=== PATIENT | female | born 1960 | race Caucasian/White ===

== ENCOUNTER 2020-01-12 11:47 | Emergency (ER) | payer MEDICARE, MEDICAID ==
[2020-01-12] MEDS ORDERED: DEXAMETHASONE SOD PHOS INJ 10 MG/1 ML VIAL IV ONE (12:02)
[2020-01-12] MEDS ORDERED: FAMOTIDINE INJ/PF 20 MG/2 ML SDV IV ONE (12:02)
[2020-01-12] MEDS ORDERED: DIPHENHYDRAMINE HCL 50 MG/ML VIAL IV ONE (12:02)
--- NOTE | 2020-01-12 12:02 | ER Document Report ---
ED Medical Screen (RME) - General Chief Complaint: Swelling of Tongue Stated Complaint: TONGUE SWELLING Time Seen by Provider: 01/12/20 11:59 Notes: 59-year-old female presents with tongue swelling that started upon awakening. Patient is on lisinopril for years. Patient denies any other lip or throat swelling. Patient denies any shortness of breath. Tongue is noticeably swollen. No stridor. Patient is handling secretions at this time. I have greeted and performed a rapid initial assessment of this patient. A comprehensive ED assessment and evaluation of the patient, analysis of test results and completion of the medical decision making process with be conducted by additional ED providers. TRAVEL OUTSIDE OF THE [place] IN LAST 30 DAYS: No - Related Data Allergies/Adverse Reactions: acetaminophen [From Percocet] Allergy (Intermediate, Verified 01/12/20 11:57) ringing in ears codeine [Codeine] Allergy (Intermediate, Verified 01/12/20 11:57) crazy oxycodone HCl [From Percocet] Allergy (Intermediate, Verified 01/12/20 11:57) ringing in ears omeprazole [From Prilosec] Adverse Reaction (Intermediate, Verified 01/12/20 11:57) Nausea omeprazole magnesium [From Prilosec] Adverse Reaction (Intermediate, Verified 01/12/20 11:57) Nausea Past Medical History - Past Medical History Cardiac Medical History: Reports: Hx Hypercholesterolemia, Hx Hypertension Pulmonary Medical History: Reports: Hx Asthma, Hx Bronchitis, Hx Pneumonia Denies: Hx Tuberculosis Neurological Medical History: Reports: Hx Migraine Endocrine Medical History: Reports: Hx Diabetes Mellitus Type 2 - prediabetic Musculoskeltal Medical History: Reports Hx Musculoskeletal Deformity, Reports Hx Musculoskeletal Trauma Psychiatric Medical History: Reports: Hx Depression Traumatic Medical History: Reports: Hx Fractures Past Surgical History: Reports: Hx Section - x1, Hx Cholecystectomy, Hx Dilation and Curettage, Hx Gynecologic Surgery - D&C - Immunizations Immunizations up to date: Yes Hx Diphtheria, Pertussis, Tetanus Vaccination: Yes Physical Exam - Vital signs Vitals: Temp Pulse Resp BP Pulse Ox 98.7 F 102 H 18 153/73 H 97 01/12/20 11:54 01/12/20 11:54 01/12/20 11:54 01/12/20 11:54 01/12/20 11:54 Course - Vital Signs Vital signs: Temp Pulse Resp BP Pulse Ox 98.7 F 102 H 18 153/73 H 97 01/12/20 11:54 01/12/20 11:54 01/12/20 11:54 01/12/20 11:54 01/12/20 11:54
[2020-01-12] MEDS ORDERED: EPINEPHRINE INJ/PF 1 MG/1 ML AMPULE IM ONE (12:14)
[2020-01-12] MEDS ORDERED: C1 ESTERASE INHIBITOR IV PRN (13:51)
[2020-01-12] MEDS ORDERED: CONTAINER EMPTY IV PRN (13:51)
--- NOTE | 2020-01-12 15:08 | ER Document Report ---
ED General - General Chief Complaint: Swelling of Tongue Stated Complaint: TONGUE SWELLING Time Seen by Provider: 01/12/20 11:59 Mode of Arrival: Ambulatory Information source: Patient TRAVEL OUTSIDE OF THE [place] IN LAST 30 DAYS: No - HPI Notes: Patient presents with tongue swelling and trouble swallowing. She states she has never had this before. She states that started about early afternoon. It is been getting progressively worse. She has not been short of breath but has had some trouble swallowing her own saliva. The patient symptoms have been constant. They have been severe. It is a fullness sensation. Patient does take an EDER inhibitor. It seems to be worse with swallowing and better when she does not swallow. - Related Data Allergies/Adverse Reactions: acetaminophen [From Percocet] Allergy (Intermediate, Verified 01/12/20 11:57) ringing in ears codeine [Codeine] Allergy (Intermediate, Verified 01/12/20 11:57) crazy oxycodone HCl [From Percocet] Allergy (Intermediate, Verified 01/12/20 11:57) ringing in ears omeprazole [From Prilosec] Adverse Reaction (Intermediate, Verified 01/12/20 11:57) Nausea omeprazole magnesium [From Prilosec] Adverse Reaction (Intermediate, Verified 01/12/20 11:57) Nausea Home Medications: gabapentin Past Medical History - General Information source: Patient - Social History Smoking Status: Former Smoker Chew tobacco use (# tins/day): No Frequency of alcohol use: None Drug Abuse: None Family History: Reviewed & Not Pertinent, Hypertension Patient has suicidal ideation: No Patient has homicidal ideation: No - Past Medical History Cardiac Medical History: Reports: Hx Hypercholesterolemia, Hx Hypertension Pulmonary Medical History: Reports: Hx Asthma, Hx Bronchitis, Hx Pneumonia Denies: Hx Tuberculosis Neurological Medical History: Reports: Hx Migraine Endocrine Medical History: Reports: Hx Diabetes Mellitus Type 2 - prediabetic Musculoskeletal Medical History: Reports Hx Musculoskeletal Deformity, Reports Hx Musculoskeletal Trauma Psychiatric Medical History: Reports: Hx Depression Traumatic Medical History: Reports: Hx Fractures Past Surgical History: Reports: Hx Section - x1, Hx Cholecystectomy, Hx Dilation and Curettage, Hx Gynecologic Surgery - D&C - Immunizations Immunizations up to date: Yes Hx Diphtheria, Pertussis, Tetanus Vaccination: Yes Review of Systems - Review of Systems Constitutional: denies: Chills, Fever Cardiovascular: denies: Chest pain, Palpitations Respiratory: denies: Cough, Hemoptysis, Short of breath -: Yes All other systems reviewed and negative Physical Exam - Vital signs Vitals: Temp Pulse Resp BP Pulse Ox 98.7 F 102 H 18 153/73 H 97 01/12/20 11:54 01/12/20 11:54 01/12/20 11:54 01/12/20 11:54 01/12/20 11:54 Interpretation: Tachycardic - General General appearance: Appears well, Alert - HEENT Head: Normocephalic, Atraumatic Eyes: Normal Pupils: PERRL Mouth/Lips: Angioedema, Other - Patient has diffuse swelling of the tongue both anterior and posterior aspects. Do not appreciate any significant swelling of the posterior pharynx or uvula. Mucous membranes: Moist - Respiratory Respiratory status: No respiratory distress Chest status: Nontender Breath sounds: Normal Chest palpation: Normal - Cardiovascular Rhythm: Regular Heart sounds: Normal auscultation Murmur: No - Abdominal Inspection: Normal Distension: No distension Bowel sounds: Normal Tenderness: Nontender Organomegaly: No organomegaly - Back Back: Normal, Nontender - Extremities General upper extremity: Normal inspection, Nontender, Normal color, Normal ROM, Normal temperature General lower extremity: Normal inspection, Nontender, Normal color, Normal ROM, Normal temperature, Normal weight bearing. No: Aissatou's sign - Neurological Neuro grossly intact: Yes Cognition: Normal Orientation: AAOx4 [place] Coma Scale Eye Opening: Spontaneous [place] Coma Scale Verbal: Oriented Lakisha Coma Scale Motor: Obeys Commands [place] Coma Scale Total: 15 Speech: Normal Motor strength normal: LUE, RUE, LLE, RLE Sensory: Normal - Psychological Associated symptoms: Normal affect, Normal mood - Skin Skin Temperature: Warm Skin Moisture: Dry Skin Color: Normal Course - Re-evaluation Re-evalutation: 01/12/20 15:11 Patient presented with significant angioedema of the tongue. I had anesthesia consulted. They felt at this time the patient did not require intubation. Patient was treated with epinephrine steroids and antihistamines. Initially the first 1 to 2 hours or is not a significant response. Over the last hour she has had a significant decrease of the swelling. And at this time states that she feels much better. She states her tongue feels more mobile. She states she is able to tolerate swallowing much better. - Vital Signs Vital signs: Temp Pulse Resp BP Pulse Ox 98.7 F 102 H 26 H 138/56 H 97 01/12/20 11:54 01/12/20 11:54 01/12/20 12:09 01/12/20 12:08 01/12/20 11:54 Discharge - Discharge Clinical Impression: Angioedema Qualifiers: Encounter type: initial encounter Qualified Code(s): T78.3XXA - Angioneurotic edema, initial encounter Condition: Stable Disposition: HOME, SELF-CARE Instructions: Angioedema ([facility]) Additional Instructions: Please stop taking lisinopril. Please call your family doctor as soon as possible and let them know that you had tongue swelling with lisinopril. Please asked them for a new blood pressure medication. Prescriptions: Prednisone 50 mg PO DAILY 5 Days #25 tablet Forms: Return to Work
[2020-01-12 18:10] VITALS: BP 117/75
== END 2020-01-12 18:09 | disposition home or self-care (01) ==
LOC: ER 11:47
DX: T78.3XXA Angioneurotic edema, initial encounter (principal); I10 Essential (primary) hypertension; Y92.9 Unspecified place or not applicable; J45.909 Unspecified asthma, uncomplicated; Z79.899 Other long term (current) drug therapy; Z87.891 Personal history of nicotine dependence; Z88.8 Allergy status to other drugs, medicaments and biological substances; Z88.6 Allergy status to analgesic agent; Z88.5 Allergy status to narcotic agent
CPT/HCPCS: 99285; 96372; 96374; 96375; J1200; J0171; S0028; J1100

== ENCOUNTER 2020-01-20 11:12 | Emergency (ER) | payer MEDICARE, MEDICAID ==
--- NOTE | 2020-01-20 12:06 | RADIOLOGY REPORT (SQ) ---
EXAM DESCRIPTION: CHEST SINGLE VIEW COMPLETED DATE/TIME: 01/20/2020 11:36 am REASON FOR STUDY: bed 20 chest pain COMPARISON: PA and lateral views of the chest from 12/28/2014. EXAM PARAMETERS: NUMBER OF VIEWS: One view. TECHNIQUE: An AP view of the chest was obtained. RADIATION DOSE: NA LIMITATIONS: None. FINDINGS: LUNGS AND PLEURA: No consolidation, pleural effusion or pneumothorax. MEDIASTINUM AND HILAR STRUCTURES: No mediastinal or hilar contour abnormality. HEART AND VASCULAR STRUCTURES: The cardiac silhouette and pulmonary vasculature are within normal smith its. BONES: No acute findings. HARDWARE: None in the chest. OTHER: No other finding. IMPRESSION: No acute cardiopulmonary process. TECHNICAL DOCUMENTATION: JOB ID: [id number] 2010 [employer]- All Rights Reserved Reading location - IP/workstation name: [email or web address]
[2020-01-20 13:11] LABS: ABSOLUTE EOSINOPHILS # (AUTO) 0.2 10^3/uL (0.0-0.6); ABSOLUTE LYMPHOCYTES (AUTO) 1.4 10^3/uL (0.5-4.7); ABSOLUTE MONOCYTES (AUTO) 0.5 10^3/uL (0.1-1.4); BASOPHILS % (AUTO) 0.6 % (0-2); EOSINOPHILS % (AUTO) 2.7 % (0-6); HEMATOCRIT 38.6 % (36.0-47.0); HEMOGLOBIN 13.4 g/dL (12.0-15.5); LYMPHOCYTES % (AUTO) 17.5 % (13-45); MEAN CORPUSCULAR HEMOGLOBIN 30.9 pg (27.0-33.4); MEAN CORPUSCULAR HGB CONC 34.7 g/dL (32.0-36.0); MEAN CORPUSCULAR VOLUME 89 fl (80-97); MONOCYTES % (AUTO) 5.9 % (3-13); PLATELET COUNT 308 10^3/uL (150-450); RED BLOOD COUNT 4.32 10^6/uL (3.72-5.28); RED CELL DISTRIBUTION WIDTH 14.2 % (11.5-14.0); SEGMENTED NEUTROPHILS % (AUTO) 73.3 % (42-78); TOTAL CELLS COUNTED % (AUTO) 100 %; WHITE BLOOD COUNT 8.2 10^3/uL (4.0-10.5)
[2020-01-20 13:13] LABS: ALBUMIN 3.5 g/dL (3.5-5.0); ALKALINE PHOSPHATASE 71 U/L (38-126); ANION GAP 9 (5-19); ASPARTATE AMINO TRANSFERASE 26 U/L (14-36); BILIRUBIN,DIRECT 0.3 mg/dL (0.0-0.4); BILIRUBIN,TOTAL 0.5 mg/dL (0.2-1.3); BLOOD UREA NITROGEN 18 mg/dL (7-20); CALCIUM 9.1 mg/dL (8.4-10.2); CARBON DIOXIDE 28 mmol/L (22-30); CHLORIDE 101 mmol/L (98-107); CREATINE KINASE 102 U/L (30-135); GLUCOSE 179 mg/dL (75-110); POTASSIUM 4.2 mmol/L (3.6-5.0); TOTAL PROTEIN 7.3 g/dL (6.3-8.2)
[2020-01-20 13:24] LABS: CREATINE KINASE MB 1.24 ng/mL (<4.55)
[2020-01-20 13:25] LABS: TROPONIN I < 0.012 ng/mL
[2020-01-20 16:04] VITALS: BP 133/72
--- NOTE | 2020-01-20 16:48 | ER Document Report ---
ED General - General Chief Complaint: Breathing Difficulty Stated Complaint: CHEST PAIN Time Seen by Provider: 01/20/20 15:15 Primary Care Provider: DOROTHY OLIVA MD [Primary Care Provider] - Follow up as needed TRAVEL OUTSIDE OF THE [place] IN LAST 30 DAYS: No - HPI Notes: Patient is a 59-year-old female who presents to the emergency department for evaluation of chest heaviness. She states that she has had it for the last 2 nights. It only seems to happen in the evening when she is laying down in her recliner. She admits she has a history of sleep apnea, states that her CPAP has been broken, but she states that has been broken for a long time and she does not believe that the issue. She did just recently start on Breo and Incruse Ellipta, and noticed her symptoms shortly after taking these. She also states her eyes were itching. She wondered if that was the reason. She denied any associated shortness of breath, nausea, diaphoresis, near syncope. These symptoms are not brought about by exertion. The heaviness does not radiate. She denies any chest tightness, heaviness, or pain at this time. She states that she did not take her inhalers last night, and did not get that sensation, but she thought she should still be checked. - Related Data Allergies/Adverse Reactions: acetaminophen [From Percocet] Allergy (Intermediate, Verified 01/12/20 11:57) ringing in ears codeine [Codeine] Allergy (Intermediate, Verified 01/12/20 11:57) crazy oxycodone HCl [From Percocet] Allergy (Intermediate, Verified 01/12/20 11:57) ringing in ears omeprazole [From Prilosec] Adverse Reaction (Intermediate, Verified 01/12/20 11 :57) Nausea omeprazole magnesium [From Prilosec] Adverse Reaction (Intermediate, Verified 01/12/20 11:57) Nausea Home Medications: Lasix 20 mg as needed for swelling amlodipine 2.5 mg daily Neurontin 300 mg, 6 and a milligrams at bedtime Past Medical History - General Information source: Patient - Social History Smoking Status: Never Smoker Family History: Reviewed & Not Pertinent, Hypertension Patient has suicidal ideation: No Patient has homicidal ideation: No - Past Medical History Cardiac Medical History: Reports: Hx Hypercholesterolemia, Hx Hypertension Pulmonary Medical History: Reports: Hx Asthma, Hx Bronchitis, Hx Pneumonia, Hx Sleep Apnea Denies: Hx Tuberculosis Neurological Medical History: Reports: Hx Migraine Endocrine Medical History: Reports: Hx Diabetes Mellitus Type 2 - prediabetic Musculoskeletal Medical History: Reports Hx Musculoskeletal Deformity, Reports Hx Musculoskeletal Trauma Psychiatric Medical History: Reports: Hx Depression Traumatic Medical History: Reports: Hx Fractures Past Surgical History: Reports: Hx Section - x1, Hx Cholecystectomy, Hx Dilation and Curettage, Hx Gynecologic Surgery - D&C - Immunizations Immunizations up to date: Yes Hx Diphtheria, Pertussis, Tetanus Vaccination: Yes Review of Systems - Review of Systems Cardiovascular: See HPI -: Yes All other systems reviewed and negative Physical Exam - Vital signs Vitals: Pulse Ox 98 01/20/20 11:13 - Notes Notes: This is an obese 59-year-old female who appears older than her stated age in no acute distress. Vital signs reviewed, please refer to chart. Head is normocephalic, atraumatic. Pupils equal round, reactive to light. Neck is supple without meningismus. Heart is regular rate and rhythm. Lungs are clear to auscultation bilaterally. Abdomen is soft, nontender, normoactive bowel sounds throughout. Extremities without cyanosis, clubbing. She does have 2+ pretibial edema. Posterior calves are nontender. Peripheral pulses are equal. Skin is warm and dry. Patient is awake, alert, neurological exam is nonfocal. Course - Re-evaluation Re-evalutation: 01/20/20 16:48 Patient presents to the emergency department for evaluation. Her laboratory investigations were ordered, she was placed on a cardiac specialist, and imaging was ordered. EKG failed to show any acute changes. She has had no chest tightness here. She had 2 cardiac enzymes that were negative entirely. At this point, I do not have any high suspicion for acute coronary syndrome being the etiology. She is not have any signs of heart failure. She has had a peripheral edema in the past which is not new. I explained to the patient she needs to have her CPAP fixed as soon as possible, we talked about the increased dresses on her body and the increased risk of heart attack and stroke and sleep apnea patients. She voiced understanding. Otherwise, I think is reasonable for her to follow-up as an outpatient for possible stress testing given this tightness. She does have sensitivities to multiple medications. I explained to her that if she has elected not to use her Breo and Incruse that she should discuss this wi th her primary care provider. She voiced understanding to this and was discharged. - Vital Signs Vital signs: Temp Pulse Resp BP Pulse Ox 98.8 F 20 133/72 H 97 01/20/20 14:05 01/20/20 16:01 01/20/20 16:01 01/20/20 16:01 - Laboratory Result Diagrams: 01/20/20 12:35 01/20/20 12:35 Laboratory results interpreted by me: 01/20/20 01/20/20 12:35 12:35 RDW 14.2 H Glucose 179 H - Diagnostic Test Radiology reviewed: Reports reviewed Radiology results interpreted by me: 01/20/20 16:51 Chest X-Ray 01/20/20 11:13 IMPRESSION: No acute cardiopulmonary process. - EKG Interpretation by Me Additional EKG results interpreted by me: 01/20/20 16:51 Sinus mechanism rate 82 bpm. Left axis deviation, IVCD. Nonspecific ST changes, but no acute changes concerning for ischemia or infarction. Discharge - Discharge Clinical Impression: Chest pain Qualifiers: Chest pain type: unspecified Qualified Code(s): R07.9 - Chest pain, unspecified Condition: Stable Disposition: HOME, SELF-CARE Instructions: Chest Pain of Unclear Cause ([facility]) Additional Instructions: It is unclear at this time what caused her chest pain. It is possible it is a reaction to your medications, it may be related to your sleep apnea, or you may have another etiology. Please follow-up with your primary care provider tomorrow in regards to this. If you develop worsening or new concerning symptoms of any sort, please return immediately to the emergency department for evaluation. Referrals: DOROTHY OLIVA MD [Primary Care Provider] - Follow up as needed
--- NOTE | 2020-01-20 19:41 | EKG REPORT ---
SEVERITY:- ABNORMAL ECG - SINUS RHYTHM PROBABLE LEFT VENTRICULAR HYPERTROPHY CONSIDER ANTERIOR INFARCT : Confirmed by: Alexandria Antunez MD 20-Jan-2020 19:39:26
== END 2020-01-20 17:02 | disposition home or self-care (01) ==
LOC: ER 11:12
DX: R07.9 Chest pain, unspecified (principal); G47.30 Sleep apnea, unspecified; Z91.19 Patient's noncompliance with other medical treatment and regimen; L29.9 Pruritus, unspecified; R60.0 Localized edema; I45.9 Conduction disorder, unspecified; J45.909 Unspecified asthma, uncomplicated; I10 Essential (primary) hypertension; Z79.899 Other long term (current) drug therapy; Z88.8 Allergy status to other drugs, medicaments and biological substances; Z88.6 Allergy status to analgesic agent; Z88.5 Allergy status to narcotic agent
CPT/HCPCS: 36415; 71045; 80053; 82550; 82553; 84484; 85025; 93005; 93010; 99285

== ENCOUNTER 2020-03-28 08:46 | Emergency (ER) | payer MEDICARE, MEDICAID ==
[2020-03-28] MEDS ORDERED: ONDANSETRON HCL INJ/PF 4 MG/2 ML SDV IV ONE (10:03)
--- NOTE | 2020-03-28 10:07 | ER Document Report ---
ED Medical Screen (RME) - General Chief Complaint: Vomiting Stated Complaint: SORE THROAT Time Seen by Provider: 03/28/20 09:57 Primary Care Provider: DOROTHY OLIVA MD [Primary Care Provider] - Follow up as needed TRAVEL OUTSIDE OF THE [place] IN LAST 30 DAYS: No - HPI Notes: 03/28/20 10:04 5-year-old female presents emergency room with sudden onset dysphagia after eating a bowl of cereal at 230 this morning. Patient states she "feels like something is stuck in my throat". Patient started vomiting after onset of dysphasia. Denies any new medications foods or travel. Patient states she was seen at the beginning of December for angioedema which was thought to have correlated to her lisinopril which she has been off. Patient has been spitting to manage her secretions. Denies any fevers chills, chest pain, shortness of breath. Denies any abdominal pain. I have greeted and performed a rapid initial assessment of this patient. A comprehensive ED assessment and evaluation of the patient, analysis of test results and completion of the medical decision making process will be conducted by additional ED providers. PHYSICAL EXAMINATION: GENERAL: Well-appearing, well-nourished and in no acute distress. HEAD: Atraumatic, normocephalic. EYES: Pupils equal round extraocular movements intact, conjunctiva are normal. ENT: Uvula midline, clear, pharynx unremarkable NECK: Normal range of motion CV: s1, s2 regular LUNGS: No respiratory distress NEUROLOGICAL: Normal speech, normal gait. SKIN: Warm, Dry, normal turgor, no rashes or lesions noted. - Related Data Allergies/Adverse Reactions: acetaminophen [From Percocet] Allergy (Intermediate, Verified 01/12/20 11:57) ringing in ears codeine [Codeine] Allergy (Intermediate, Verified 01/12/20 11:57) crazy oxycodone HCl [From Percocet] Allergy (Intermediate, Verified 01/12/20 11:57) ringing in ears omeprazole [From Prilosec] Adverse Reaction (Intermediate, Verified 01/12/20 11:57) Nausea omeprazole magnesium [From Prilosec] Adverse Reaction (Intermediate, Verified 01/12/20 11:57) Nausea Past Medical History - Past Medical History Cardiac Medical History: Reports: Hx Hypercholesterolemia, Hx Hypertension Pulmonary Medical History: Reports: Hx Asthma, Hx Bronchitis, Hx Pneumonia, Hx Sleep Apnea Denies: Hx Tuberculosis Neurological Medical History: Reports: Hx Migraine Endocrine Medical History: Reports: Hx Diabetes Mellitus Type 2 - prediabetic Musculoskeltal Medical History: Reports Hx Musculoskeletal Deformity, Reports Hx Musculoskeletal Trauma Psychiatric Medical History: Reports: Hx Depression Traumatic Medical History: Reports: Hx Fractures Past Surgical History: Reports: Hx Section - x1, Hx Cholecystectomy, Hx Dilation and Curettage, Hx Gynecologic Surgery - D&C - Immunizations Immunizations up to date: Yes Hx Diphtheria, Pertussis, Tetanus Vaccination: Yes Physical Exam - Vital signs Vitals: Temp Pulse Resp BP Pulse Ox 98.2 F 94 18 133/78 H 96 03/28/20 08:52 03/28/20 08:52 03/28/20 08:52 03/28/20 08:52 03/28/20 08:52 Course - Vital Signs Vital signs: Temp Pulse Resp BP Pulse Ox 98.2 F 94 18 133/78 H 96 03/28/20 09:56 03/28/20 08:52 03/28/20 08:52 03/28/20 08:52 03/28/20 08:52 Doctor's Discharge - Discharge Referrals: DOROTHY OLIVA MD [Primary Care Provider] - Follow up as needed
[2020-03-28] MEDS ORDERED: GLUCAGON,HUMAN RECOMB 1 MG INJ SUBCUT ONE (10:40)
--- NOTE | 2020-03-28 11:22 | RADIOLOGY REPORT (SQ) ---
EXAM DESCRIPTION: CHEST 2 VIEWS IMAGES COMPLETED DATE/TIME: 03/28/2020 11:05 am REASON FOR STUDY: dysphagia, vomiting COMPARISON: AP view of the chest from 01/20/2020. EXAM PARAMETERS: NUMBER OF VIEWS: Two views. TECHNIQUE: PA and lateral views of the chest were obtained. RADIATION DOSE: NA LIMITATIONS: None. FINDINGS: LUNGS AND PLEURA: Low inspiratory lung volumes without a superimposed consolidation, pleur al effusion or pneumothorax. MEDIASTINUM AND HILAR STRUCTURES: No mediastinal or hilar contour abnormality. HEART AND VASCULAR STRUCTURES: The cardiac silhouette and pulmonary vasculature are within normal smith its. BONES: No acute findings. HARDWARE: None in the chest. OTHER: No other finding. IMPRESSION: Low inspiratory lung volumes without a superimposed consolidation, pleural effusion or p neumothorax. TECHNICAL DOCUMENTATION: JOB ID: [id number] 2010 [employer]- All Rights Reserved Reading location - IP/workstation name: [email or web address]
--- NOTE | 2020-03-28 11:24 | RADIOLOGY REPORT (SQ) ---
EXAM DESCRIPTION: SOFT TISSUE NECK IMAGES COMPLETED DATE/TIME: 03/28/2020 11:05 am REASON FOR STUDY: dysphagia, vomiting COMPARISON: None. NUMBER OF VIEWS: Two views. TECHNIQUE: AP and lateral radiographic image of the soft tissues of the neck. LIMITATIONS: None. FINDINGS: EPIGLOTTIS: The aryepiglottic folds are normal. PREVERTEBRAL SOFT TISSUES: Normal. SUBGLOTTIC AREA: No narrowing. RETROPHARYNGEAL SPACE: Normal. BONES: No acute fracture malalignment. LUNG APICES: Normal. OTHER: No radiopaque foreign body. IMPRESSION: No radiographic abnormality of the soft tissues of the neck. TECHNICAL DOCUMENTATION: JOB ID: [id number] 2010 [employer]- All Rights Reserved Reading location - IP/workstation name: [email or web address]
--- NOTE | 2020-03-28 11:50 | ER Document Report ---
ED General - General Chief Complaint: Vomiting Stated Complaint: SORE THROAT Time Seen by Provider: 03/28/20 09:57 Primary Care Provider: DOROTHY OLIVA MD [Primary Care Provider] - Follow up as needed Mode of Arrival: Ambulatory Information source: Patient TRAVEL OUTSIDE OF THE [place] IN LAST 30 DAYS: No - HPI Notes: Patient states that she had a bowl of cereal last night. She states ever having the bowl of cereal she began to have right-sided neck pain and pain with swallowing. She states she had problems swallowing water but was able to swallow it. She has had pain with any type of swallowing and feels that something is still stuck in her throat. She also has had multiple episodes of vomiting. She denies any previous history of similar symptoms. Her symptoms appear to be constant. They are moderate in intensity. There is no radiation of the symptoms. It is made worse with swallowing and better when she does not swallow. - Related Data Allergies/Adverse Reactions: acetaminophen [From Percocet] Allergy (Intermediate, Verified 01/12/20 11:57) ringing in ears codeine [Codeine] Allergy (Intermediate, Verified 01/12/20 11:57) crazy oxycodone HCl [From Percocet] Allergy (Intermediate, Verified 01/12/20 11:57) ringing in ears omeprazole [From Prilosec] Adverse Reaction (Intermediate, Verified 01/12/20 11:57) Nausea omeprazole magnesium [From Prilosec] Adverse Reaction (Intermediate, Verified 01/12/20 11:57) Nausea Past Medical History - General Information source: Patient - Social History Smoking Status: Former Smoker Frequency of alcohol use: None Drug Abuse: None Family History: Reviewed & Not Pertinent, Hypertension Patient has homicidal ideation: No - Past Medical History Cardiac Medical History: Reports: Hx Hypercholesterolemia, Hx Hypertension Pulmonary Medical History: Reports: Hx Asthma, Hx Bronchitis, Hx Pneumonia, Hx Sleep Apnea Denies: Hx Tuberculosis Neurological Medical History: Reports: Hx Migraine Endocrine Medical History: Reports: Hx Diabetes Mellitus Type 2 - prediabetic Musculoskeletal Medical History: Reports Hx Musculoskeletal Deformity, Reports Hx Musculoskeletal Trauma Psychiatric Medical History: Reports: Hx Depression Traumatic Medical History: Reports: Hx Fractures Past Surgical History: Reports: Hx Section - x1, Hx Cholecystectomy, Hx Dilation and Curettage, Hx Gynecologic Surgery - D&C - Immunizations Immunizations up to date: Yes Hx Diphtheria, Pertussis, Tetanus Vaccination: Yes Review of Systems - Review of Systems Constitutional: denies: Chills, Fever Cardiovascular: denies: Chest pain, Palpitations Respiratory: denies: Cough, Short of breath -: Yes All other systems reviewed and negative Physical Exam - Vital signs Vitals: Temp Pulse Resp BP Pulse Ox 98.2 F 94 18 133/78 H 96 03/28/20 08:52 03/28/20 08:52 03/28/20 08:52 03/28/20 08:52 03/28/20 08:52 Interpretation: Normal - General General appearance: Appears well, Alert - HEENT Head: Normocephalic, Atraumatic Eyes: Normal Pupils: PERRL Mouth/Lips: Normal Mucous membranes: Moist Pharynx: Other - Right tonsil is hypertrophied without significant erythema or exudate. Left tonsil appears normal. Neck: Normal - Respiratory Respiratory status: No respiratory distress Chest status: Nontender Breath sounds: Normal Chest palpation: Normal - Cardiovascular Rhythm: Regular Heart sounds: Normal auscultation Murmur: No - Abdominal Inspection: Normal Distension: No distension Bowel sounds: Normal Tenderness: Nontender Organomegaly: No organomegaly - Back Back: Normal, Nontender - Extremities General upper extremity: Normal inspection, Nontender, Normal color, Normal ROM, Normal temperature General lower extremity: Normal inspection, Nontender, Normal color, Normal ROM, Normal temperature, Normal weight bearing. No: Aissatou's sign - Neurological Neuro grossly intact: Yes Cognition: Normal Orientation: AAOx4 Kane Coma Scale Eye Opening: Spontaneous Kane Coma Scale Verbal: Oriented Kane Coma Scale Motor: Obeys Commands Kane Coma Scale Total: 15 Speech: Normal Motor strength normal: LUE, RUE, LLE, RLE Sensory: Normal - Psychological Associated symptoms: Normal affect, Normal mood - Skin Skin Temperature: Warm Skin Moisture: Dry Skin Color: Normal Course - Re-evaluation Re-evalutation: 03/28/20 13:36 Patient presents with painful swallowing that started approximate 230 last night. On physical exam nothing is evident other than patient has some right tonsillar hypertrophy. She does not have any stridor or apparent distress. On CT scan she does have some asymmetric swelling of the right area epiglottic fold. The radiologist states this could be angioedema versus some type of mass. Patient is on an EDER inhibitor but it would seem unlikely that she would have this focal of angioedema. She does have some increased lymphadenopathy as well. I have discussed the case with the ear nose and throat doctor who states he will see the patient immediately in the office. Therefore patient will be discharged and instructed to go straight to the ear nose and throat office. - Vital Signs Vital signs: Temp Pulse Resp BP Pulse Ox 98.8 F 94 20 126/81 H 97 03/28/20 10:12 03/28/20 10:12 03/28/20 10:12 03/28/20 10:12 03/28/20 10:12 - Laboratory Result Diagrams: 03/28/20 11:40 03/28/20 11:40 Laboratory results interpreted by me: 03/28/20 03/28/20 11:40 11:40 RDW 14.1 H Glucose 184 H Total Protein 8.3 H - Diagnostic Test Radiology reviewed: Image reviewed, Reports reviewed Discharge - Discharge Clinical Impression: Odynophagia Condition: Stable Disposition: HOME, SELF-CARE Additional Instructions: Please go straight to Dr. Sanchez's office. He will see you immediately. He is at [address] [place] [address] in [place], [place] Referrals: IVY SANCHEZ MD [ACTIVE STAFF] - 03/28/20 2:00 pm
[2020-03-28 11:53] LABS: ABSOLUTE BASOPHILS # (AUTO) 0.1 10^3/uL (0.0-0.2); ABSOLUTE EOSINOPHILS # (AUTO) 0.1 10^3/uL (0.0-0.6); ABSOLUTE LYMPHOCYTES (AUTO) 1.3 10^3/uL (0.5-4.7); ABSOLUTE MONOCYTES (AUTO) 0.6 10^3/uL (0.1-1.4); ABSOLUTE NEUT (AUTO) 6.7 10^3/uL (1.7-8.2); BASOPHILS % (AUTO) 0.6 % (0-2); EOSINOPHILS % (AUTO) 0.7 % (0-6); HEMATOCRIT 42.6 % (36.0-47.0); MEAN CORPUSCULAR HEMOGLOBIN 30.5 pg (27.0-33.4); MEAN CORPUSCULAR HGB CONC 35.3 g/dL (32.0-36.0); MEAN CORPUSCULAR VOLUME 87 fl (80-97); MONOCYTES % (AUTO) 6.8 % (3-13); PLATELET COUNT 344 10^3/uL (150-450); RED BLOOD COUNT 4.92 10^6/uL (3.72-5.28); RED CELL DISTRIBUTION WIDTH 14.1 % (11.5-14.0); SEGMENTED NEUTROPHILS % (AUTO) 76.9 % (42-78); TOTAL CELLS COUNTED % (AUTO) 100 %; WHITE BLOOD COUNT 8.7 10^3/uL (4.0-10.5)
[2020-03-28 12:13] LABS: ALBUMIN 4.1 g/dL (3.5-5.0); ALKALINE PHOSPHATASE 96 U/L (38-126); ANION GAP 9 (5-19); ASPARTATE AMINO TRANSFERASE 30 U/L (14-36); BILIRUBIN,TOTAL 0.6 mg/dL (0.2-1.3); BLOOD UREA NITROGEN 17 mg/dL (7-20); CALCIUM 9.4 mg/dL (8.4-10.2); CARBON DIOXIDE 29 mmol/L (22-30); CHLORIDE 99 mmol/L (98-107); GLUCOSE 184 mg/dL (75-110); POTASSIUM 4.1 mmol/L (3.6-5.0); TOTAL PROTEIN 8.3 g/dL (6.3-8.2)
--- NOTE | 2020-03-28 13:39 | RADIOLOGY REPORT (SQ) ---
EXAM DESCRIPTION: CT SOFT TISSUE NECK WITH IMAGES COMPLETED DATE/TIME: 03/28/2020 1:15 pm REASON FOR STUDY: pain/odynophagia right side COMPARISON: Soft tissue neck radiographs 03/28/2020 TECHNIQUE: Post IV contrasted scanning from skull base through lung apices with review of bone, soft tissue and lung windows. Reconstructed coronal and sagittal MPR images reviewed. All images stored on PACS. All CT scanners at this facility use dose modulation, iterative reconstruction, and/or weight based d osing when appropriate to reduce radiation dose to as low as reasonably achievable (ALARA). [facility]: Dose Right [facility]: CareDose [facility]: Dose Right [facility]: Teradose 4D [facility]: Qustreet CONTRAST TYPE AND DOSE: contrast/concentration: Isovue 350.00 mg/ml; Total Contrast Delivered: 19.0 ml; Total Saline Delivered: 29.7 ml RENAL FUNCTION: Creatinine 0.8 RADIATION DOSE: CT Rad equipment meets quality standard of care and radiation dose reduction techniq ues were employed. CTDIvol: 24.6 mGy. DLP: 837 mGy-cm. . LIMITATIONS: Large patient, limited contrast bolus FINDINGS: Asymmetric soft tissue swelling of the right aryepiglottic fold is present, extending into the rightward half of the epiglottis, best shown on axial images 56-62, and coronal image 31. This causes mild supraglottic airway narrowing. This finding was discussed with Dr. Moya in the emerg ency room, 1315 hours. This could represent focal edema. Tumor is possible. Remainder of the naso, missy, hypopharynx is widely patent. No parapharyngeal space abscess or mass. Lingual and pharyngeal tonsils are unremarkable. SKULL BASE: Intact. MAJOR SALIVARY GLANDS: No solid or cystic masses. No inflammatory changes. LYMPHADENOPATHY: There is adenopathy at the thoracic inlet as follows: 2.6 x 1.5 cm right peritracheal lymph node axial image 103, 1.2 x 0.9 cm lymph node right peritracheal axial image 100, Precarinal 1.9 x 1.8 cm lymph node axial image 112 MUCOSAL MASSES OR ASYMMETRY: Thickening of the right aryepiglottic fold as above. LARYNX/CORDS: Thickening of the right aryepiglottic fold as above. VASCULAR STRUCTURES: The major vessels are patent. LUNG APICES: Clear. BONES: Intact. THYROID: Normal size. No masses. PARANASAL SINUSES: Clear. OTHER: No other significant finding. IMPRESSION: Asymmetric thickening of the right area epiglottic fold. This could represent edema. T umor could not entirely be excluded. Upper mediastinal adenopathy Findings discussed with emergency room attending physician TECHNICAL DOCUMENTATION: JOB ID: [id number] Quality ID # [id number]: Final reports with documentation of one or more dose reduction techniques (e.g., Au tomated exposure control, adjustment of the mA and/or kV according to patient size, use of iterative reconstruction technique) 2010 [employer]- All Rights Reserved Reading location - IP/workstation name: [id number]
[2020-03-28 14:16] VITALS: BP 140/72
== END 2020-03-28 14:04 | disposition home or self-care (01) ==
LOC: ER 08:46
DX: R13.10 Dysphagia, unspecified (principal); M54.2 Cervicalgia; J35.1 Hypertrophy of tonsils; J38.4 Edema of larynx; R59.1 Generalized enlarged lymph nodes; R11.10 Vomiting, unspecified; J45.909 Unspecified asthma, uncomplicated; I10 Essential (primary) hypertension; Z79.899 Other long term (current) drug therapy; Z87.891 Personal history of nicotine dependence; Z88.6 Allergy status to analgesic agent; Z88.5 Allergy status to narcotic agent
CPT/HCPCS: 99284; 96374; 36415; 87070; 87880; 85025; 80053; 71046; 70360; 70491; J2405

== ENCOUNTER 2020-07-17 12:13 | Emergency (ER) | payer MEDICARE, MEDICAID ==
[2020-07-17] MEDS ORDERED: ONDANSETRON HCL INJ/PF 4 MG/2 ML SDV IV ONE ×2 (13:33→19:32)
[2020-07-17] MEDS ORDERED: MORPHINE SULFATE 10 MG/ML INJ IV ONE ×2 (13:33→19:33)
--- NOTE | 2020-07-17 13:35 | ER Document Report ---
ED Medical Screen (RME) - General Chief Complaint: Abdominal Pain Stated Complaint: FLANK PAIN Primary Care Provider: DOROTHY OLIVA MD [Primary Care Provider] - Follow up as needed Notes: Patient is a 59-year-old white female with a history of morbid obesity, sarcoidosis, diabetes who presents the emergency department chief complaint of left flank pain. She is status post cholecystectomy with 1 prior episode of pancreatitis associated with the cholecystitis. She presents today complaining of left leg pain, began at 3 in the morning. States it is sharp and shooting in the left lateral torso. States the pain does not radiate. Worse with movement and palpation. Has been constant since 3 AM. States is associated with some nausea and dry heaving but no vomiting or diarrhea. No urinary complaints. No vaginal bleeding or discharge. I have treated and performed a rapid initial assessment of this patient. A comprehensive ED assessment and evaluation of the patient, analysis of test results and completion of medical decision making process will be conducted by additional ED providers. PHYSICAL EXAMINATION: GENERAL: Well-appearing, well-nourished and in no acute distress. A&Ox4. Answers questions appropriately. TRAVEL OUTSIDE OF THE [place] IN LAST 30 DAYS: No - Related Data Allergies/Adverse Reactions: acetaminophen [From Percocet] Allergy (Intermediate, Verified 01/12/20 11:57) ringing in ears codeine [Codeine] Allergy (Intermediate, Verified 01/12/20 11:57) crazy oxycodone HCl [From Percocet] Allergy (Intermediate, Verified 01/12/20 11:57) ringing in ears lisinopril Allergy (Verified 07/17/20 13:30) Facial swelling omeprazole [From Prilosec] Adverse Reaction (Intermediate, Verified 01/12/20 11:57) Nausea omeprazole magnesium [From Prilosec] Adverse Reaction (Intermediate, Verified 01/12/20 11:57) Nausea Past Medical History - Social History Frequency of alcohol use: None Drug Abuse: None - Past Medical History Cardiac Medical History: Reports: Hx Hypercholesterolemia, Hx Hypertension Pulmonary Medical History: Reports: Hx Asthma, Hx Bronchitis, Hx Pneumonia, Hx Sleep Apnea Denies: Hx Tuberculosis Neurological Medical History: Reports: Hx Migraine Endocrine Medical History: Reports: Hx Diabetes Mellitus Type 2 - prediabetic Musculoskeltal Medical History: Reports Hx Musculoskeletal Deformity, Reports Hx Musculoskeletal Trauma Psychiatric Medical History: Reports: Hx Depression Traumatic Medical History: Reports: Hx Fractures Past Surgical History: Reports: Hx Section - x1, Hx Cholecystectomy, Hx Dilation and Curettage, Hx Gynecologic Surgery - D&C - Immunizations Immunizations up to date: Yes Hx Diphtheria, Pertussis, Tetanus Vaccination: Yes Physical Exam - Vital signs Vitals: Temp Pulse Resp BP Pulse Ox 99.4 F 88 16 136/66 H 99 07/17/20 12:23 07/17/20 12:23 07/17/20 12:07/17/20 12:07/17/20 12:23 Course - Vital Signs Vital signs: Temp Pulse Resp BP Pulse Ox 99.4 F 88 16 136/66 H 99 07/17/20 12:23 07/17/20 12:23 07/17/20 12:23 07/17/20 12:23 07/17/20 12:23 Doctor's Discharge - Discharge Referrals: DOROTHY OLIVA MD [Primary Care Provider] - Follow up as needed
[2020-07-17 14:18] LABS: ABSOLUTE BASOPHILS # (AUTO) 0.1 10^3/uL (0.0-0.2); ABSOLUTE EOSINOPHILS # (AUTO) 0.1 10^3/uL (0.0-0.6); ABSOLUTE LYMPHOCYTES (AUTO) 1.3 10^3/uL (0.5-4.7); ABSOLUTE MONOCYTES (AUTO) 0.7 10^3/uL (0.1-1.4); ABSOLUTE NEUT (AUTO) 8.8 10^3/uL (1.7-8.2); APPEARANCE,URINE CLEAR; BASOPHILS % (AUTO) 0.6 % (0-2); BILIRUBIN,URINE NEGATIVE (NEGATIVE); COLOR,URINE YELLOW; EOSINOPHILS % (AUTO) 1.2 % (0-6); GLUCOSE, URINE >=500 mg/dL (NEGATIVE); HEMATOCRIT 45.1 % (36.0-47.0); HEMOGLOBIN 15.1 g/dL (12.0-15.5); KETONES,URINE NEGATIVE (NEGATIVE); LYMPHOCYTES % (AUTO) 11.5 % (13-45); MEAN CORPUSCULAR HEMOGLOBIN 28.7 pg (27.0-33.4); MEAN CORPUSCULAR HGB CONC 33.5 g/dL (32.0-36.0); MEAN CORPUSCULAR VOLUME 86 fl (80-97); MONOCYTES % (AUTO) 6.3 % (3-13); PLATELET COUNT 324 10^3/uL (150-450); PROTEIN,URINE NEGATIVE (NEGATIVE); RED BLOOD COUNT 5.26 10^6/uL (3.72-5.28); RED CELL DISTRIBUTION WIDTH 15.2 % (11.5-14.0); SEGMENTED NEUTROPHILS % (AUTO) 80.4 % (42-78); TOTAL CELLS COUNTED % (AUTO) 100 %; URINE SPECIFIC GRAVITY 1.026
[2020-07-17 14:37] LABS: ALKALINE PHOSPHATASE 94 U/L (38-126); ANION GAP 11 (5-19); ASPARTATE AMINO TRANSFERASE 36 U/L (14-36); BILIRUBIN,DIRECT 0.4 mg/dL (0.0-0.4); BILIRUBIN,TOTAL 0.9 mg/dL (0.2-1.3); BLOOD UREA NITROGEN 13 mg/dL (7-20); CALCIUM 9.5 mg/dL (8.4-10.2); CARBON DIOXIDE 27 mmol/L (22-30); CHLORIDE 101 mmol/L (98-107); GLUCOSE 139 mg/dL (75-110); POTASSIUM 4.5 mmol/L (3.6-5.0); TOTAL PROTEIN 7.8 g/dL (6.3-8.2)
--- NOTE | 2020-07-17 19:18 | ER Document Report ---
ED General - General Chief Complaint: Abdominal Pain Stated Complaint: FLANK PAIN Time Seen by Provider: 07/17/20 19:16 Primary Care Provider: DOROTHY OLIVA MD [NO LOCAL MD] - Follow up as needed TRAVEL OUTSIDE OF THE [place] IN LAST 30 DAYS: No - HPI Notes: 59-year-old female presents with left side pain. Patient states that at 3 AM this morning she was watching TV, she developed sudden onset of stabbing pain in her left side. Thought that perhaps she was sitting the wrong way, readjusted herself however pain increased. She has had persistent pain today, sharp and shooting, worse with movement. She has not tried any medications for pain. She has some nausea due to the pain, feels herself gagging as well but no true vomiting. She denies dysuria or hematuria. She denies diarrhea. Denies previous history of kidney stone or diverticulitis. - Related Data Allergies/Adverse Reactions: acetaminophen [From Percocet] Allergy (Intermediate, Verified 01/12/20 11:57) ringing in ears codeine [Codeine] Allergy (Intermediate, Verified 01/12/20 11:57) crazy oxycodone HCl [From Percocet] Allergy (Intermediate, Verified 01/12/20 11:57) ringing in ears lisinopril Allergy (Verified 07/17/20 13:30) Facial swelling omeprazole [From Prilosec] Adverse Reaction (Intermediate, Verified 01/12/20 11:57) Nausea omeprazole magnesium [From Prilosec] Adverse Reaction (Intermediate, Verified 01/12/20 11:57) Nausea Past Medical History - General Information source: Patient - Social History Smoking Status: Former Smoker Frequency of alcohol use: None Drug Abuse: None Family History: Hypertension, Other - Polycystic kidney disease - Past Medical History Cardiac Medical History: Reports: Hx Hypercholesterolemia, Hx Hypertension Pulmonary Medical History: Reports: Hx Asthma, Hx Bronchitis, Hx Pneumonia, Hx Sleep Apnea Denies: Hx Tuberculosis Neurological Medical History: Reports: Hx Migraine Endocrine Medical History: Reports: Hx Diabetes Mellitus Type 2 - prediabetic Musculoskeletal Medical History: Reports Hx Musculoskeletal Deformity, Reports Hx Musculoskeletal Trauma Psychiatric Medical History: Reports: Hx Depression Traumatic Medical History: Reports: Hx Fractures Past Surgical History: Reports: Hx Section - x1, Hx Cholecystectomy, Hx Dilation and Curettage, Hx Gynecologic Surgery - D&C - Immunizations Immunizations up to date: Yes Hx Diphtheria, Pertussis, Tetanus Vaccination: Yes Review of Systems - Review of Systems Constitutional: denies: Fever EENT: No symptoms reported Cardiovascular: denies: Chest pain Respiratory: denies: Short of breath Gastrointestinal: Abdominal pain, Nausea. denies: Diarrhea, Vomiting Genitourinary: Flank pain. denies: Dysuria Female Genitourinary: Post menopausal Musculoskeletal: No symptoms reported Skin: No symptoms reported Hematologic/Lymphatic: No symptoms reported Neurological/Psychological: No symptoms reported Physical Exam - Vital signs Vitals: Temp Pulse Resp BP Pulse Ox 99.4 F 88 16 136/66 H 99 07/17/20 12:23 07/17/20 12:23 07/17/20 12:23 07/17/20 12:23 07/17/20 12:23 - General General appearance: Appears well In distress: None - HEENT Head: Normocephalic, Atraumatic Eyes: No: Scleral icterus Extraocular movements intact: Yes Pupils: PERRL - Respiratory Breath sounds: Normal - Cardiovascular Rhythm: Regular Heart sounds: Normal auscultation - Abdominal Inspection: Morbidly Obese Bowel sounds: Normal Tenderness: Tender - Left lateral abdomen versus right flank, there is some limitation in exam due to patient's body habitus. No: Guarding, Rebound - Extremities General lower extremity: No: Edema - Neurological Neuro grossly intact: Yes Cognition: Normal Orientation: AAOx4 - Psychological Associated symptoms: Normal affect - Skin Skin Temperature: Warm Course - Re-evaluation Re-evalutation: 07/17/20 20:06 59-year-old female with left flank pain versus left abdominal pain. Onset this morning sharp and stabbing in character. She does have left CVA area tenderness, however given her body habitus there is some limitation in physical exam. She is nontoxic appearing. Abdomen is overall non-peritoneal. Concern for kidney stone versus diverticulitis versus less likely pyelonephritis. CT abdomen ordered to assess. Will treat pain and give fluids. 07/17/20 21:30 CT abdomen images and report reviewed. Per radiology, there is no evidence of stone. No intra-abdominal pathology identified. 07/17/20 21:44 I went in to update patient on the work-up so far, it is relatively reassuring. Patient now stating that she thinks the pain is coming from her back, she has had this pain before and it feels like a strong muscle spasm. I did reexamine her, she has some superficial tenderness but no deep tenderness. There is no rash or erythema to suggest zoster. Will trial Valium and Toradol. 07/17/20 22:35 Patient reports improvement in her symptoms. Stable at time of discharge. Return precautions given. - Vital Signs Vital signs: Temp Pulse Resp BP Pulse Ox 99.4 F 88 16 136/66 H 99 07/17/20 12:23 07/17/20 12:23 07/17/20 12:23 07/17/20 12:23 07/17/20 12:23 - Laboratory Result Diagrams: 07/17/20 13:55 07/17/20 13:55 Laboratory results interpreted by me: 07/17/20 07/17/20 07/17/20 13:55 13:55 13:55 WBC 11.0 H RDW 15.2 H Lymph % (Auto) 11.5 L Absolute Neuts (auto) 8.8 H Seg Neutrophils % 80.4 H Glucose 139 H Urine Glucose (UA) >=500 H Urine Urobilinogen 2.0 H - Diagnostic Test Radiology reviewed: Image reviewed, Reports reviewed Discharge - Discharge Clinical Impression: Abdominal wall pain Condition: Stable Disposition: HOME, SELF-CARE Additional Instructions: Please continue ibuprofen and Tylenol for additional pain control, you may purchase lidocaine patches available [id number] in the pain I will. Please continue all medications as prescribed. Please return to the emergency department for any worsening or concerning symptoms. Referrals: DOROTHY OLIVA MD [NO LOCAL MD] - Follow up as needed
[2020-07-17] MEDS ORDERED: RINGERS SOLUTION,LACTATED 1,000 ML IV ONE (19:33)
--- NOTE | 2020-07-17 21:14 | RADIOLOGY REPORT (SQ) ---
CLINICAL INDICATION: left flank pain. . TECHNIQUE: Noncontrast followed by contrast enhanced spiral axial CT imaging was obtained of the abdomen and pelvis with multiplanar reconstructions. This exam was performed according to our departmental dose-optimization program, which includes automated exposure control, adjustment of the mA and/or kV according to patient size and/or use of iterative reconstruction techniques. COMPARISON: None. CORRELATION: None. FINDINGS: Abdomen: The lung bases demonstrate bibasilar atelectasis. The heart is prominent. No evidence of pleural or pericardial fluid. Chronic changes. Motion artifact The liver is fatty infiltrated. Mild hepatomegaly 17.1 cm craniocaudad. The gallbladder is surgically absent. The pancreas is unremarkable. The spleen is unremarkable. The adrenals are unremarkable. The kidneys appear grossly normal without evidence of urolithiasis or hydronephrosis. There is no evidence of free air. No free fluid. No bulky adenopathy. Abdominal aorta is nonaneurysmal. Pelvis: The bowel is nonobstructed. The bowel is unopacified with oral contrast. Pelvic contents are unremarkable. The appendix is not seen. No focal inflammatory change. 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 Shotty inguinal lymph nodes. Dominant lymph node left inguinal measuring 2 x 2.1 cm and right inguinal at 1.7 x 1.9 cm IMPRESSION: Artifact from patient body habitus. Imaging is degraded by patient motion, with resultant artifact. The best possible images were obtained. No acute intra-abdominal process identified. Hepatic steatosis. Mild hepatomegaly.. Prominent bilateral inguinal lymph nodes. The cause of the patient's left flank pain is not identified on this examination.
[2020-07-17] MEDS ORDERED: KETOROLAC TROMETHAMINE INJ/PF 30 MG/1 ML SDV IV ONE (21:43)
[2020-07-17] MEDS ORDERED: DIAZEPAM 5 MG TABLET PO ONE (21:44)
[2020-07-17 22:46] VITALS: BP 118/92
== END 2020-07-17 22:57 | disposition home or self-care (01) ==
LOC: ER 12:13
DX: R10.9 Unspecified abdominal pain (principal); R11.0 Nausea; K76.0 Fatty (change of) liver, not elsewhere classified; I10 Essential (primary) hypertension; Z87.891 Personal history of nicotine dependence; J45.909 Unspecified asthma, uncomplicated; Z90.49 Acquired absence of other specified parts of digestive tract; Z88.8 Allergy status to other drugs, medicaments and biological substances; Z88.6 Allergy status to analgesic agent; Z88.5 Allergy status to narcotic agent
CPT/HCPCS: 99285; 96361; 96374; 96375; 36415; 83690; 85025; 80053; 81001; 74178; A9270; J1885; J2270; J2405; J7120